=== PATIENT | male | born 1965 | race Caucasian/White ===

== ENCOUNTER 2016-07-02 17:09 | Inpatient (IN) | payer OTHER ==
[2016-07-02] MEDS ORDERED: ONDANSETRON INJ 4 MG/2 ML VIAL IV ONE (17:27)
[2016-07-02] MEDS ORDERED: ASPIRIN TABLET 325 MG TAB PO ONE (17:27)
[2016-07-02] MEDS ORDERED: SODIUM CHLORIDE 0.9% (FLUSH) 10 ML SYG IV PRN ×2 (17:27→20:49)
[2016-07-02] MEDS ORDERED: NITROGLYCERIN 0.4 MG 25 EA TAB SL ONE (17:27)
[2016-07-02] MEDS ORDERED: SODIUM CHLORIDE 0.9% 1000ML 1,000 ML IVS ONE (17:29)
--- NOTE | 2016-07-02 17:42 | ED.PDOC ---
History of Present Illness - General Chief Complaint: Chest Pain/NE Stated Complaint: CHEST PAIN Time Seen by Provider: 07/02/16 17:27 Source: patient Exam Limitations: no limitations - History of Present Illness Initial Comments: 50 YO MALE WITH NO MEDICAL PROBLEMS PRESENTS TO ED COMPLAINING OF CHEST PAIN THAT WAS PRESENT UPON AWAKENING THIS AM. PT REPORTS THAT HE WAS SETTING UP OXYGEN IN SOMEONES HOUSE AND BECAME OVERHEATED BECAUSE THE HOUSE WAS WARM. PT STATES THAT HE FELT LIGHT HEADED, NAUSEOUS AND BEGAN HAVING PALPITATIONS. PT CONTINUES TO REPORT PALPITATIONS AND STATES THAT CHEST PAIN HAS RANGED FROM 2/ 10 TO 5/10. CURRENTLY HE STATES IT IS 2/10. Timing/Duration: 7-24 hours Severity: mild Location: substernal Activities at Onset: sleep Prior Chest Pain/Cardiac Workup: no prior chest pain, no prior cardiac workup Improving Factors: nothing Worsening Factors: nothing Nitro Today/Relief: no nitro taken today Aspirin Treatment Today: no aspirin today Associated Symptoms: other - PALPITATIONS Allergies/Adverse Reactions: Allergies NO KNOWN ALLERGY Allergy (Verified 07/02/16 17:47) Review of Systems - Review of Systems Constitutional: Denies: chills, fever EENTM: Denies: ear pain, throat pain Respiratory: Denies: cough, short of breath Cardiology: States: see HPI, chest pain, palpitations Gastrointestinal/Abdominal: States: see HPI, nausea. Denies: abdominal pain, diarrhea Genitourinary: Denies: dysuria, hematuria Musculoskeletal: Denies: joint pain, joint swelling Skin: Denies: dryness, lesions Neurological: States: no symptoms reported Endocrine: States: no symptoms reported Past Medical History (General) - Patient Medical History Hx Seizures: No Hx Asthma: Yes Hx Cardiac Disorders: No Hx Congestive Heart Failure: No Hx Pacemaker: No Hx Hypertension: No Hx Diabetes: No Surgical History: other - Social History Hx Tobacco Use: No Hx Alcohol Use: Yes - 6 PACK 3 TIMES PER WEEK Hx Substance Use: Yes - RECREATIONAL DRUGS IN THE 90S Family Medical History - Family History Mother Family History: Unknown Physical Exam - Physical Exam General Appearance: Alert, No apparent distress, Well Groomed, Well Hydrated Eyes, Ears, Nose, Throat Exam: normal ENT inspection Neck: full range of motion, normal inspection Respiratory: lungs clear, normal breath sounds, no respiratory distress Cardiovascular/Chest: tachycardia, irregularly irregular Gastrointestinal/Abdominal: non tender, soft Extremity: non-tender, normal inspection Neurologic: alert, normal mood/affect, oriented x 3 Skin Exam: normal color, warm/dry Progress - Progress Progress: 07/02/16 18:22 PT RESTING COMFORTABLY, FLUIDS INFUSING, REMAINS TACHY, WILL PLAN TO ADMIT - Results/Orders Results/Orders: 07/02/16 17:27 IV Care:Saline Lock per Protoc QSHIFT Telemetry .ONCE Sodium Chloride 0.9% (Flush) [Saline Flush Syringe] 10 ml IV PRN PRN EKG Stat Pulse Ox Stat 07/02/16 17:29 URINE DRUG SCREEN, 7 ASSAY Stat Sodium Chloride 0.9% 1000ML [Ns 1000 ml] 1,000 ml IVS ONCE 07/02/16 17:50 B-TYPE NATRIURETIC PEPTIDE/BNP Stat CARDIAC PANEL,ER Stat D-DIMER,QUANTITATIVE Stat 07/02/16 18:15 ED Intent to Admit Routine Laboratory Results - last 24 hr 07/02/16 17:50 WBC 9.8 RBC 4.98 Hgb 15.2 Hct 45.7 MCV 91.8 MCH 30.5 MCHC 33.2 RDW 14.2 Plt Count 245 MPV 9.2 Absolute Neuts (auto) 5.60 Absolute Lymphs (auto) 2.50 Absolute Monos (auto) 1.40 H Absolute Eos (auto) 0.20 Absolute Basos (auto) 0.10 Neutrophils % 57.0 Lymphocytes % 26.0 Monocytes % 14.1 H Eosinophils % 1.9 Basophils % 1.0 PT 10.0 INR 0.880 PTT (SP) 26.6 Sodium 139 Potassium 4.1 Chloride 103 Carbon Dioxide 28 Anion Gap 12.1 BUN 14 Creatinine 1.04 BUN/Creatinine Ratio 13.5 Random Glucose 113 H Serum Osmolality 278.8 Calcium 9.4 Magnesium 2.1 Creatine Kinase 138 - EKG/XRAY/CT EKG: Sinus, Tachy - 115BPM,, LVH, RBBB - INCOMPLETE, nonspecific ST T wave Chg - NO OLD EKG FOR COMPARISON Departure - Departure Clinical Impression: Tachycardia, Chest pain, Palpitations Time of Disposition: 18:23 Disposition: Admit Patient Condition: Fair Departure Forms: ED Discharge - Pt. Copy, Patient Portal Self Enrollment Decision To Admit - Decistion To Admit Decision to Admit Reason: Admit from ER Decision to Admit Date: 07/02/16 Decision to Admit Time: 18:14 - CASE DISCUSSED WITH TAISHA BARKSDALE NP WHO AGREES TO ADMIT
--- NOTE | 2016-07-02 17:54 | RAD ---
PROCEDURE: XR CHEST 1 VIEW HISTORY: CHEST PAIN COMPARISON: None TECHNIQUE: Single projection of the chest was done. FINDINGS: There is presence of mild bibasilar passive atelectasis/infiltrates . There are no pneumothoraces or pleural effusions. The pulmonary vascularity is normal. The cardiomediastinal silhouette is unremarkable for patient's age and sex. IMPRESSION: There is presence of mild bibasilar passive atelectasis/infiltrates . Electronically signed by: Gus Altamirano MD 07/02/2016 5:53 PM CDT
[2016-07-02] MEDS ORDERED: cefTRIAXone SODIUM 1 GM in SODIUM CHL 0.9% 50ML MIN-BAG+ 50 ML IVPB ONE (18:31)
[2016-07-02] MEDS ORDERED: AZITHROMYCIN IV 500 MG in SODIUM CHLORIDE 0.9% 250ML 250 ML IVPB ONE (18:31)
[2016-07-02] MEDS ORDERED: cefTRIAXone SODIUM 1 GM VIAL ONE (19:04)
[2016-07-02] MEDS ORDERED: SODIUM CHL 0.9% 50ML MIN-BAG+ 50 ML IVPB ONE (19:05)
[2016-07-02] MEDS ORDERED: AZITHROMYCIN IV 500 MG VIAL IVPB ONE (19:43)
[2016-07-02] MEDS ORDERED: SODIUM CHLORIDE 0.9% 250ML 250 ML ONE (19:43)
--- NOTE | 2016-07-02 20:04 | HP ---
SUPERVISING PHYSICIAN: Yash Pisano MD CHIEF COMPLAINT: Chest pain. HISTORY OF PRESENT ILLNESS: Mr. Cr is a 50 year-old male patient with no significant medical history who presented to the Emergency Department complaining of chest pain he noted occurred since early this AM he awoke before he went to work. 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 The patient felt that he was lightheaded, nauseated and he began having palpitations. The patient continued to report the palpitations and states the chest pain had ranged from a 2/10 to 5/10 and on presentation to the Emergency Room was noted is pain was 2/10. Laboratory studies in the Emergency Department showed he had a normal CBC, coagulation studies were unremarkable. Chemistries showed normal electrolytes and initial troponin was less than 0.02. Initial EKG showed a sinus tachycardia without any ST changes, T-wave inversions or any concerns for ischemia and the patient was pain-free after 1 Nitroglycerin. On examination in the Emergency Department, it was noted his pain was somewhat reproducible with some palpitations in rotation of his left shoulder and deep breathing. He also had a chest x-ray in the Emergency Department prior to admission and per radiology interpretation there was presence of a mild bibasilar infiltrate. Again, the patient was having chest pain, he was felt best by being placed in observation for evaluation of cardiac enzymes, close cardiac telemetry and monitoring. The patient was placed in observation in stable condition.. PAST MEDICAL HISTORY: 1. Hypertension but he takes no medication. PAST SURGICAL HISTORY: 1. 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 CURRENT MEDICATIONS: No prescribed medications listed. ALLERGIES: NO KNOWN DRUG ALLERGIES. FAMILY HISTORY: Mother at age 33 from breast cancer complications. Father from complications of diabetes and lung cancer. 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 He lives in [place], [place]. He is . He denies ever smoking but does have a history of drinking approximately a 6- pack of beer a week. REVIEW OF SYSTEMS: CONSTITUTIONAL: The patient denies any chills or fevers. HEENT: Denies any ear pain, throat pain, nasal congestion. RESPIRATORY: Denies any cough or shortness of breath. CARDIOVASCULAR: As noted in history of present illness. Chest pain and palpitations. GASTROINTESTINAL: Noted some nausea but denies any abdominal pain or diarrhea. Has no history of any illness. GENITOURINARY: Denies dysuria or hematuria. MUSCULOSKELETAL: Denies joint pain or joint swelling, although he does have some shoulder discomfort on the left side on palpation. NEUROLOGICAL: Denies any neurological changes or syncopal episodes, vision changes. PHYSICAL EXAMINATION: VITAL SIGNS: Initial blood pressure in the Emergency Department was 166/81 with heart rate of 112. Temperature 98.1 with 02 saturation 98% on room air. At time of admission to the medical/surgical floor, temperature was 97, pulse 73 , blood pressure 145/80, respirations 18. Saturation 94% on room air. Initial weight 97.4 kg. GENERAL: The patient is alert, appears to be in no distress. He is well groomed, well hydrated. HEENT: Tympanic membranes are clear bilaterally. Oropharynx is pink and moist without any lesions. NECK: Non-tender with full range of motion. No jugular venous distention. CHEST: Clear to auscultation bilaterally without any rhonchi, wheezes or rales. CARDIOVASCULAR: Regular rate and rhythm without any appreciable murmurs, rubs , or gallops. ABDOMEN: Soft, non-tender, positive bowel sounds. EXTREMITIES: No cyanosis, clubbing, or edema. NEUROLOGIC: Alert and oriented x 3. LABORATORY: CBC within normal limits with white count 9.8. Coagulation studies are normal. Chemistries show normal electrolytes with potassium 4.1. Initial cardiac enzymes less than 0.02 for troponin. CKMB 1.8. RADIOLOGY: Chest x-ray noted presence of a mild bilateral opacity, atelectasis versus infiltrate. ASSESSMENT: 1. Chest pain with patient without any significant underlying comorbidities and no significant risk factors. Unknown etiology with initial cardiac enzymes showing to be negative for amylase and troponin with some of his symptoms being reproducible on examination possibly secondary to an underlying costochondritic pain versus pleuritis. 2. History of hypertension without any current medical therapy. PLAN: The patient will be placed in observation overnight and placed on telemetry. Plan to repeat cardiac enzymes 3 to 6 hours and in the morning along with EKGs. Comorbidities were hypertensive and had the chest pain on admission. Plan to put him on a Nitroglycerin paste. Will anticipate discharge possibly tomorrow with the patient needing close followup with his primary care physician and cardiology at some point after discharge. Until the, we will continue to monitor the patient closely and treat appropriately. #[id number] [facility]
[2016-07-02] MEDS ORDERED: ASPIRIN (CHEWABLE) 81 MG TAB PO ONE (20:49)
[2016-07-02] MEDS ORDERED: MORPHINE SULFATE INJ 10 MG/ML VIAL IV PRN (20:49)
[2016-07-02] MEDS ORDERED: NITROGLYCERIN 0.4 MG 25 EA TAB SL PRN (20:49)
[2016-07-02] MEDS ORDERED: ACETAMINOPHEN 325 MG TAB PO PRN (20:49)
[2016-07-02] MEDS ORDERED: IV SET AND CAP CHANGE INJ INJ SCH (21:00)
[2016-07-02] MEDS: NITROGLYCERIN 2% 1 GM UD TOP SCH (21:35)
[2016-07-02] MEDS: SODIUM CHLORIDE 0.9% (FLUSH) 10 ML SYG IV SCH (21:38)
[2016-07-03] MEDS: ASPIRIN TABLET 325 MG TAB PO SCH (09:58)
[2016-07-03] MEDS: NITROGLYCERIN 2% 1 GM UD TOP SCH ×2 (09:59→15:05)
[2016-07-03] MEDS ORDERED: LEVALBUTEROL NEBS 1.25 MG/3 ML VIAL NEB ONE (11:16)
[2016-07-03] MEDS: SODIUM CHLORIDE 0.9% (FLUSH) 10 ML SYG IV SCH ×2 (11:25→20:56)
[2016-07-03] MEDS: FLUTICASONE/SALMETEROL 250/50 14 PUFF/17 GM INH INH SCH ×2 (11:50→19:50)
[2016-07-03] MEDS ORDERED: SODIUM CHLORIDE 0.9% 250ML 250 ML ONE (12:34)
[2016-07-03] MEDS ORDERED: SODIUM CHL 0.9% 50ML MIN-BAG+ 50 ML IVPB ONE ×2 (12:34→20:33)
[2016-07-03] MEDS ORDERED: cefTRIAXone SODIUM 1 GM VIAL ONE ×2 (12:34→20:33)
[2016-07-03] MEDS ORDERED: AZITHROMYCIN IV 500 MG VIAL IVPB ONE (12:34)
[2016-07-03] MEDS: cefTRIAXone SODIUM 1 GM in SODIUM CHL 0.9% 50ML MIN-BAG+ 50 ML IVPB SCH (12:35)
[2016-07-03] MEDS: guaiFENesin ER TAB 600 MG TAB PO SCH ×2 (12:36→20:56)
--- NOTE | 2016-07-03 12:40 | PCM.CORE ---
Physician DVT/VTE - Prophylaxis Currently: Patient already on anticoagulation therapy - Nurse DVT Assessment & Total Each Risk Factor Represents 1 Point: Age 41-60 Each Risk Factor is 1 Point: Obesity (BMI >25) DVT Assessment Score: 2 - 2 Moderate Risk Treatments: Early Ambulation *, Sequential Compression Device
[2016-07-03] MEDS ORDERED: PANTOPRAZOLE SODIUM IV 40 MG VIAL IV SCH (13:00)
[2016-07-03] MEDS ORDERED: ENOXAPARIN SODIUM 40 MG/0.4 ML SYG SUBCU SCH (13:00)
[2016-07-03] MEDS ORDERED: methylPREDNISolone SODIUM SUC 125 MG/2 ML VIAL IV ONE (14:45)
[2016-07-03] MEDS: AZITHROMYCIN IV 500 MG in SODIUM CHLORIDE 0.9% 250ML 250 ML IVPB SCH (17:48)
--- NOTE | 2016-07-03 18:28 | PN ---
DATE: 07/03/16 SUPERVISING PHYSICIAN: Yash Pisano M.D. SUBJECTIVE: The patient is sitting in his bed. He has just returned from the bathroom and complains of extreme shortness of breath. His oxygen saturation is 92% but he is quite tachypneic with his respiratory rate between 24 and 28. He did say he has a history of asthma and he ran out of his Breo about a month ago. He has only used his Albuterol inhaler sporadically because his medication was almost gone and he did not have a refill for it. He states that he has shortness of breath with any kind of exertion and he has felt like he has had an upper respiratory infection that has come on over the last 2 to 3 days. 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 He denies any chest pain, nausea, vomiting or diarrhea. OBJECTIVE: He is afebrile. Heart rate 75, blood pressure 101/53, respiratory rate 20 breaths per minute at rest, but with exertion it is 24 to 28 breaths per minute. Oxygen saturation is 93% on 2 liters nasal cannula. RESPIRATORY: Expiratory wheezes throughout and diminished at the bases, more so on the left than on the right. CARDIAC: Regular rate and rhythm. ABDOMEN: Soft, nondistended, non-tender. Bowel sounds are positive. EXTREMITIES: No cyanosis , clubbing or edema. NEUROLOGIC: He is awake, alert and oriented times three. LABORATORY: WBCs are 10.1. Cardiac enzymes are negative times 4. CMP shows sodium 140, potassium 3.8, chloride 107, carbon dioxide 25, anion gap 11.8, BUN 17, creatinine 1.03, glucose 115, calcium 8.4. Preliminary blood cultures are negative to date. Chest x-ray shows the presence of mild bibasilar passive atelectasis/infiltrates. All other labs and films have been reviewed via the EMR. ASSESSMENT: 1. Acute exacerbation of asthma due to noncompliance with medications as well as seasonal influences. 2. Left lower lobe pneumonia as evidenced by physical exam with tachypnea and the patient's complaint of shortness of breath as well as chest x-ray with infiltrates with a suspected organism that may be due to Streptococcus pneumoniae, but are still awaiting blood cultures as well as sputum cultures. 3. History of hypertension but presently on no medications. 4. Chest pain on admission that has now subsided and with negative cardiac enzymes. His EKG does show normal sinus rhythm with PACs. PLAN: We will change the patient to full admission. With continue his Azithromycin and Rocephin. He will have bronchial hygiene as well as incentive spirometry. I have given him a dose of Solu-Medrol and I have started him on Advair. He has also gotten Xopenex both scheduled and p.r.n. treatments. Will treat him aggressively for his pneumonia. Hopefully he will improve over the next day or so. Will recommend that he gets a cardiac workup from his primary care physician, which is Dr. Isaacs in [place]. His telephone number is [phone]. Will also encourage to continue on his asthma medications as well as his breathing treatments. We will continue to monitor the patient closely and followup as needed. Dr. Pisano is the collaborating physician and available for consultation. #[id number] and #[id number] [facility]
[2016-07-03] MEDS ORDERED: SODIUM CHLORIDE 0.9% (FLUSH) 10 ML SYG IV PRN (21:17)
[2016-07-03] MEDS ORDERED: IV SET AND CAP CHANGE INJ INJ SCH (21:30)
[2016-07-04] MEDS: cefTRIAXone SODIUM 1 GM in SODIUM CHL 0.9% 50ML MIN-BAG+ 50 ML IVPB SCH ×3 (00:40→23:50)
--- NOTE | 2016-07-04 07:54 | RAD ---
Procedure: XR CHEST 2 VIEWS Exam Date: 07/04/2016 Ordering Provider: MUSHTAQ BLANK Clinical Indication: Pneumonia Comparison: 07/02/2016 Findings: The heart is not enlarged. Pulmonary vasculature is normal. Mediastinal contour is normal. Aortic contour is normal. Subsegmental atelectasis/scarring in the right middle and left lower lobes. There is no focal lung consolidation. No pleural effusion. There is no pneumothorax. There is no acute bony or soft tissue abnormality. Impression: 1. No acute abnormalities in the chest. 2. Subsegmental atelectasis/scarring in the right middle and left lower lobes. Electronically signed by: Girish Roper MD 07/04/2016 7:54 AM CDT
[2016-07-04] MEDS: LEVALBUTEROL NEBS 1.25 MG/3 ML VIAL NEB PRN ×3 (08:30→16:00)
[2016-07-04] MEDS: FLUTICASONE/SALMETEROL 250/50 14 PUFF/17 GM INH INH SCH ×2 (08:30→21:07)
[2016-07-04] MEDS ORDERED: SODIUM CHL 0.9% 50ML MIN-BAG+ 50 ML IVPB ONE ×2 (09:46→19:40)
[2016-07-04] MEDS ORDERED: cefTRIAXone SODIUM 1 GM VIAL ONE ×2 (09:46→19:40)
[2016-07-04] MEDS: ENOXAPARIN SODIUM 40 MG/0.4 ML SYG SUBCU SCH (10:04)
[2016-07-04] MEDS: ASPIRIN TABLET 325 MG TAB PO SCH (10:05)
[2016-07-04] MEDS: guaiFENesin ER TAB 600 MG TAB PO SCH ×2 (10:05→20:53)
[2016-07-04] MEDS: SODIUM CHLORIDE 0.9% (FLUSH) 10 ML SYG IV SCH ×2 (10:05→20:53)
[2016-07-04] MEDS: NITROGLYCERIN 2% 1 GM UD TOP SCH (11:24)
[2016-07-04] MEDS ORDERED: AZITHROMYCIN IV 500 MG VIAL IVPB ONE (16:07)
[2016-07-04] MEDS ORDERED: SODIUM CHLORIDE 0.9% 250ML 250 ML ONE (16:07)
[2016-07-04] MEDS: PANTOPRAZOLE SODIUM TAB 40 MG PO SCH (16:56)
[2016-07-04] MEDS: AZITHROMYCIN IV 500 MG in SODIUM CHLORIDE 0.9% 250ML 250 ML IVPB SCH (17:46)
--- NOTE | 2016-07-04 21:10 | PN ---
DATE: 07/04/16 SUPERVISING PHYSICIAN: Juan Pablo Moscoso M.D. SUBJECTIVE: The patient is sitting up in his chair in his room. His shortness of breath has improved overnight. He has walked in the neff without desaturations of his oxygen. He still occasionally gets short of breath with some exertion but it has improved greatly since yesterday. He still has a dry hacking cough. Otherwise he denies any chest pain, abdominal pain, nausea, vomiting or diarrhea. OBJECTIVE: VITAL SIGNS: He is afebrile, heart rate 97, blood pressure 127/89, respiratory rate 18, O2 sat is 94%. RESPIRATORY: Essentially clear to auscultation bilaterally except it is quite diminished on the left side. CARDIAC: Regular rate and rhythm. ABDOMEN: Soft, nondistended, non-tender. Bowel sounds are positive. EXTREMITIES: No cyanosis, clubbing or edema. NEUROLOGIC: He is awake, alert and oriented times three. LABORATORY: Metabolic panel is basically within normal limits, except glucose is 156 and serum osmolality is 273.4. WBCs are 11.1, hemoglobin 14.2, hematocrit 42.8, neutrophils 85.3. Chest x-ray shows subsegmental atelectasis/scarring in the right middle and left lower lobes. All other labs and films have been reviewed via the EMR. ASSESSMENT: 1. Acute exacerbation of asthma due to noncompliance with medications as well as seasonal influences. 2. Left lower lobe pneumonia as evidenced by physical exam with tachypnea and the patient's complaint of shortness of breath as well as chest x-ray with infiltrates with a suspected organism that may be due to Streptococcus pneumoniae, but are still awaiting blood cultures as well as sputum cultures. 3. History of hypertension but presently on no medications. 4. Chest pain on admission that has now subsided and with negative cardiac enzymes. His EKG does show normal sinus rhythm with PACs. PLAN: We will plan for discharge in the morning. We will monitor him again overnight. He needs to be discharged on some Azithromycin. I have also encouraged him with good pulmonary hygiene. We have also talked extensively about his asthma control. I have ordered a CBC for in the morning. Hopefully he can be discharged with close followup with his primary care physician, Dr. Isaacs in [place] with a recommended cardiac followup. We will continue to monitor the patient closely and followup as needed. Dr. Moscoso is the collaborating physician available for consultation. #[id number] [facility]
[2016-07-05 05:08] VITALS: BP 110/67; TEMP 97.6
[2016-07-05] MEDS: PANTOPRAZOLE SODIUM TAB 40 MG PO SCH (06:17)
[2016-07-05] MEDS ORDERED: SODIUM CHLORIDE 0.9% 250ML 250 ML ONE (07:18)
[2016-07-05] MEDS ORDERED: AZITHROMYCIN IV 500 MG VIAL IVPB ONE (07:19)
[2016-07-05] MEDS ORDERED: cefTRIAXone SODIUM 1 GM VIAL ONE (07:19)
[2016-07-05] MEDS ORDERED: SODIUM CHL 0.9% 50ML MIN-BAG+ 50 ML IVPB ONE (07:19)
[2016-07-05] MEDS: FLUTICASONE/SALMETEROL 250/50 14 PUFF/17 GM INH INH SCH (07:37)
[2016-07-05] MEDS: guaiFENesin ER TAB 600 MG TAB PO SCH (09:14)
[2016-07-05] MEDS: ASPIRIN TABLET 325 MG TAB PO SCH (09:15)
[2016-07-05] MEDS: ENOXAPARIN SODIUM 40 MG/0.4 ML SYG SUBCU SCH (09:15)
[2016-07-05] MEDS: SODIUM CHLORIDE 0.9% (FLUSH) 10 ML SYG IV SCH (09:15)
[2016-07-05 09:38] VITALS: O2SAT 93
--- NOTE | 2016-07-10 08:51 | DS ---
SUPERVISING PHYSICIAN: Yash Pisano MD DISCHARGE DIAGNOSIS: 1. Acute exacerbation of asthma due to noncompliance with medications as well as seasonal influences. 2. Left lower lobe pneumonia as evidenced by physical exam with tachypnea and the patient's complaint of shortness of breath as well as chest x-ray with infiltrates with a suspected organism that may be due to Streptococcus pneumoniae, but still awaiting blood cultures as well as sputum culture. 3. History of hypertension, but presently on no medications. 4. Chest pain on admission that has now subsided and with negative cardiac enzymes. His EKG does show normal sinus rhythm with premature atrial contractions. HISTORY OF PRESENT ILLNESS: This is a 50-year-old male patient who presented to the Emergency Room complaining of chest pain he noted earlier in the morning on the date of admission. He said it started sometime in the morning before he actually went to work. 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 He felt that he became quite over heated, lightheaded, nauseated and he had palpitations. Initially, his chest pain was 2 /10, but it went up as high as 5/10 and he continued to report the palpitations. He went to the Emergency Room and his initial laboratory studies showed a normal CBC, normal electrolytes and initial troponin was less than 0.02. Initial EKG showed sinus tachycardia with no ST changes. His pain was somewhat reproducible with some palpitations in rotation of his left shoulder and deep breathing. His chest x-ray in the Emergency Room prior to admission per radiology interpretation showed presence of mild bibasilar infiltrates. The patient continued to have chest pain and he was placed in observation. He was monitored with telemetry and close observation and continued in stable condition. HOSPITAL COURSE: The patient had no further issues with his chest pain. His cardiac enzymes continued to be within normal limits. EKG showed sinus rhythm to sinus tachycardia with premature atrial contractions, but on the second day of hospitalization, the patient had returned from the bathroom and complained of extreme shortness of breath. His oxygen saturation was 92%, but he was quite tachypneic with his respiratory rate between 24 and 28. He has a significant history of asthma and he ran out of his Breo about a month ago and he only uses albuterol inhalers sporadically because his medication was almost gone and he did not have a refill for it. He had shortness of breath with any kind of exertion and he felt like he had had an upper respiratory infection over the last couple of days. 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 He was changed to a full admission for an acute exacerbation of asthma due to noncompliance as well as a left lower lobe pneumonia as evidenced by his tachypnea and shortness of breath and his chest x- ray with infiltrates. He was continued on azithromycin as well as Rocephin. He was given a high dose of Solu-Medrol and was started on Advair as well as Xopenex treatments. He was treated aggressively for his pneumonia and over the next 2 days, he improved to the point where he was walking up and down the halls with no shortness of breath, minimal cough, no wheezing and at this point can be discharged home. DISCHARGE PLAN: He is to be discharged home in stable condition. He is to resume his previous diet and increase his activity as tolerated. We had discussed at length compliance for his asthma medications. He is to followup with his primary care physician, Dr. Isaacs in [place]. It is also recommended that he get a cardiac workup. He is to return to the hospital or his physician's office for any further issues or increase in symptoms or chest pain. DISCHARGE MEDICATIONS: 1. Albuterol inhaler. 2. Aspirin. 3. Azithromycin. 4. Advair. 5. Nitroglycerin. 6. Guaifenesin. Dr. Pisano is the collaborating physician and available for consultation. #[id number] [facility]
== END 2016-07-05 09:46 | disposition home or self-care (01) | DRG 194 ==
LOC: ER 17:09 → MS 20:03 → OBSVTOIN 07-03 15:00
PROVIDERS: ADMIT Nurse Practitioner Family; ATTEND Nurse Practitioner Acute Care
DX: J18.9 Pneumonia, unspecified organism (principal); J45.901 Unspecified asthma with (acute) exacerbation; I10 Essential (primary) hypertension; T48.4X6A Underdosing of expectorants, initial encounter; R07.9 Chest pain, unspecified; Z91.128 Patient's intentional underdosing of medication regimen for other reason; Z90.81 Acquired absence of spleen; Y92.009 Unspecified place in unspecified non-institutional (private) residence as the place of occurrence of the external cause